=== PATIENT | female | born 1990 ===

== ENCOUNTER 2018-01-13 02:37 | Emergency (ER) | payer SELFPAY ==
[2018-01-13 03:51] VITALS: O2SAT 98
[2018-01-13] MEDS ORDERED: Oxycodone/Acetaminophen 5/325 mg Tab PO ONE (04:05)
[2018-01-13] MEDS ORDERED: Lidocaine 2% w Epi 1:100,000 Inj IJ ONE ×3 (04:05→05:17)
[2018-01-13] MEDS ORDERED: Povidone Iodine Topical 10% Sol ONE (04:31)
[2018-01-13] MEDS ORDERED: Oxycodone/Acetaminophen 5/325 mg Tab ONE (04:43)
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
[2018-01-13 07:35] VITALS: BP 129/60; PULSE 82; RESP 18; TEMP 98.4
== END 2018-01-13 06:53 | disposition home or self-care (01) ==
LOC: H.ER 02:37
DX: S81.811A Laceration without foreign body, right lower leg, initial encounter (principal); W01.118A Fall on same level from slipping, tripping and stumbling with subsequent striking against other sharp object, initial encounter